=== PATIENT | male | born 1945 | race Caucasian/White ===

== ENCOUNTER 2016-07-28 15:28 | Emergency (ER) | payer OTHER ==
[~2016-07-28] VITALS: Ht 177.8 cm; Wt 118.7 kg
[~2016-07-28 15:28] MED LIST: AMARYL4 MG PO; ASPIR 8181 M1 PO; ATORVASTATIN CA40 MG PO; DOXYCYCLINE HY100 MG PO; FISH OIL 1,0001 EAC8 PO; FLOMAX0.4 MG PO; FUROSEMIDE40 MG PO; GEMFIBROZIL600 MG PO; LOVASTATIN20 MG PO; LOW-DOSE ASPIRI81 MG PO; MAALOX QUICK1000 MG PO; MEN'S MULTI-VI1 EACH PO; METFORMIN HCL500 MG PO; METOPROLOL TART50 MG PO; PANTOPRAZOLE SO40 MG PO; PAXIL10 MG PO; PERCOCET 5/31 TABLET PO; PLAVIX75 MG PO; POTASSIUM CHLOR8 ME3 PO; PRILOSEC20 MG PO; RAMIPRIL10 MG PO; RANITIDINE HCL150 MG PO; STOOL SOFTENER100 MG PO; VENTOLIN HFA18 GM IH; VITAMIN B-6100 MG PO; VITAMIN B12 100MCG PO; ZINC50 M1 PO
[2016-07-28 17:05] VITALS: BP 117/74
== END 2016-07-28 17:16 | disposition left against medical advice (07) ==
LOC: EME 15:28
DX: R07.9 Chest pain, unspecified (principal); I48.91 Unspecified atrial fibrillation; R68.84 Jaw pain; R06.02 Shortness of breath; I10 Essential (primary) hypertension; E78.5 Hyperlipidemia, unspecified; I25.10 Atherosclerotic heart disease of native coronary artery without angina pectoris; Z95.5 Presence of coronary angioplasty implant and graft; Z79.02 Long term (current) use of antithrombotics/antiplatelets; Z79.82 Long term (current) use of aspirin; F17.200 Nicotine dependence, unspecified, uncomplicated; Z71.6 Tobacco abuse counseling
CPT/HCPCS: 80053; 82550; 82553; 83880; 84484; 85025; 93005; 99281; 99283